=== PATIENT | female | born 1945 | race Two or more races ===

== ENCOUNTER 2021-06-01 19:08 | Inpatient (IN) | payer BC, MEDICARE, OTHER ==
[~2021-06-01] VITALS: Ht 172.7 cm; Wt 112.5 kg
[~2021-06-01 19:08] MED LIST: DILT180C66 PO; DONE10TA11 PO; GABA100C PO; GLIP10TA10 PO; METF-416 PO; SITA100T11 PO
[2021-06-01 21:43] LABS: BASOPHILS % 0.9 % (0.0-2.0); EOSINOPHILS % 3.2 % (0.0-5.0); HEMATOCRIT. 33.7 % (36.0-48.0); HEMOGLOBIN. 11.1 g/dL (12.0-16.0); LYMPHOCYTES % 13.9 % (20.0-50.0); MEAN CORPUSCULAR HEMOGLOBIN 30.1 pg (28.0-32.0); MEAN CORPUSCULAR VOLUME 91.4 fL (81.0-99.0); MEAN PLATELET VOLUME 8.5 fl (7.4-10.4); MONOCYTES % 7.9 % (2.0-8.0); NEUTROPHILS % 74.1 % (40.0-76.0); PLATELET 278 x1000/uL (130-400); RED BLOOD CELL COUNT 3.69 mill/uL (4.2-5.4); RED CELL DISTRIBUTION WIDTH 14.2 % (11.6-14.6)
[2021-06-01 21:46] LABS: CLARITY URINE CLEAR (CLEAR); COLOR URINE YELLOW (YELLOW); KETONES URINE NEGATIVE (NEGATIVE); LEUKOCYTE ESTERASE URINE NEGATIVE (NEGATIVE); NITRITE URINE NEGATIVE (NEGATIVE); OCCULT BLOOD URINE NEGATIVE (NEGATIVE); PROTEIN URINE NEGATIVE (NEGATIVE); SPECIFIC GRAVITY URINE 1.013 (1.005-1.030); UROBILINOGEN URINE 0.2 E.U./dL (0.2-1.0)
[2021-06-01 21:47] LABS: CHLORIDE 108 mEq/L (98-107)
[2021-06-02] MEDS ORDERED: MAGNESIUM/ALUMINUM HYDROXIDE/SIMETHICONE 30ML UDC PO PRN (09:45)
[2021-06-02] MEDS ORDERED: DIPHENHYDRAMINE 50MG/ML VIAL IV PRN (09:45)
[2021-06-02] MEDS ORDERED: DOCUSATE SODIUM 100MG CAPSULE PO PRN (09:45)
[2021-06-02] MEDS ORDERED: LORAZEPAM 2MG/ML CPJ IV PRN (09:45)
[2021-06-02] MEDS ORDERED: IPRATROPIUM/ALBUTEROL 0.5-3(2.5)MG/3ML NEB HHN PRN (09:45)
[2021-06-02] MEDS ORDERED: DEXTROSE 50% WATER 50ML SYRINGE IV PRN (09:45)
[2021-06-02] MEDS ORDERED: HYDROCODONE/ACETAMINOPHEN 5/325MG TABLET PO PRN (09:45)
[2021-06-02] MEDS ORDERED: HYDRALAZINE 20MG/ML VIAL IV PRN (09:45)
[2021-06-02] MEDS ORDERED: ONDANSETRON HCL 4MG/2ML INJ IV PRN (09:45)
[2021-06-02] MEDS ORDERED: ENOXAPARIN 40MG/0.4ML SYR SUBCUT SCH (09:45)
[2021-06-02] MEDS ORDERED: ACETAMINOPHEN 325MG TABLET PO PRN (09:45)
[2021-06-02] MEDS ORDERED: MORPHINE SULFATE 2 MG/ML CPJ (NOT FOR IM USE) IV PRN (09:45)
[2021-06-02] MEDS ORDERED: GUAIFENESIN 200MG/10ML SUGAR FREE UDC PO PRN (09:45)
[2021-06-02] MEDS: ENOXAPARIN 30MG/0.3ML SYR SUBCUT SCH (11:00)
[2021-06-02] MEDS: BLOOD SUGAR DIAGNOSTIC STRIP TEST SCH ×3 (11:30→20:14)
[2021-06-02] MEDS: SODIUM CHLORIDE 0.9% INJ 3ML FLUSH IVF SCH ×2 (14:00→22:00)
[2021-06-02] MEDS ORDERED: NALOXONE HCL 0.4MG/ML VIAL IV PRN (14:15)
[2021-06-02 16:00] VITALS: BP 156/52
[2021-06-02] MEDS: INSULIN LISPRO 100 UNITS/ML SUBCUT SCH ×2 (17:20→20:14)
[2021-06-02 18:12] VITALS: BP 156/52
[2021-06-02 20:00] VITALS: BP 133/58
[2021-06-03] VITALS: BP 162/45
[2021-06-03] MEDS: CLONIDINE 0.1MG TABLET PO PRN ×3 (00:16→13:32)
[2021-06-03 04:00] VITALS: BP 164/64
[2021-06-03] MEDS: BLOOD SUGAR DIAGNOSTIC STRIP TEST SCH ×4 (06:26→21:23)
[2021-06-03] MEDS: SODIUM CHLORIDE 0.9% INJ 3ML FLUSH IVF SCH ×3 (06:26→21:23)
[2021-06-03 07:28] LABS: CHLORIDE 111 mEq/L (98-107)
[2021-06-03 07:33] LABS: BASOPHILS % 0.9 % (0.0-2.0); EOSINOPHILS % 3.7 % (0.0-5.0); HEMATOCRIT. 32.1 % (36.0-48.0); HEMOGLOBIN. 10.6 g/dL (12.0-16.0); LYMPHOCYTES % 15.2 % (20.0-50.0); MEAN CORPUSCULAR HEMOGLOBIN 29.9 pg (28.0-32.0); MEAN CORPUSCULAR VOLUME 90.6 fL (81.0-99.0); MEAN PLATELET VOLUME 9.4 fl (7.4-10.4); MONOCYTES % 9.3 % (2.0-8.0); NEUTROPHILS % 70.9 % (40.0-76.0); PLATELET 274 x1000/uL (130-400); RED BLOOD CELL COUNT 3.54 mill/uL (4.2-5.4); RED CELL DISTRIBUTION WIDTH 13.6 % (11.6-14.6)
[2021-06-03] MEDS: INSULIN LISPRO 100 UNITS/ML SUBCUT SCH ×4 (09:08→21:21)
[2021-06-03] MEDS: ENOXAPARIN 30MG/0.3ML SYR SUBCUT SCH ×2 (10:24→21:23)
[2021-06-03 12:00] VITALS: BP 165/56
[2021-06-03 16:00] VITALS: BP 153/48
[2021-06-03 20:00] VITALS: BP 141/54
[2021-06-04] VITALS: BP 121/58
[2021-06-04 05:00] VITALS: BP 172/69
[2021-06-04] MEDS: CLONIDINE 0.1MG TABLET PO PRN ×2 (05:20→13:12)
[2021-06-04] MEDS: SODIUM CHLORIDE 0.9% INJ 3ML FLUSH IVF SCH ×3 (06:15→22:34)
[2021-06-04] MEDS: BLOOD SUGAR DIAGNOSTIC STRIP TEST SCH ×4 (06:15→21:00)
[2021-06-04 08:00] VITALS: BP 175/52
[2021-06-04 08:05] LABS: BASOPHILS % 0.9 % (0.0-2.0); HEMATOCRIT. 30.1 % (36.0-48.0); HEMOGLOBIN. 10.2 g/dL (12.0-16.0); LYMPHOCYTES % 17.8 % (20.0-50.0); MEAN CORPUSCULAR HEMOGLOBIN 30.5 pg (28.0-32.0); MEAN CORPUSCULAR VOLUME 89.8 fL (81.0-99.0); MEAN PLATELET VOLUME 8.8 fl (7.4-10.4); MONOCYTES % 8.4 % (2.0-8.0); NEUTROPHILS % 68.9 % (40.0-76.0); PLATELET 243 x1000/uL (130-400); RED BLOOD CELL COUNT 3.35 mill/uL (4.2-5.4); RED CELL DISTRIBUTION WIDTH 13.7 % (11.6-14.6)
[2021-06-04] MEDS: ENOXAPARIN 30MG/0.3ML SYR SUBCUT SCH ×2 (08:36→22:29)
[2021-06-04] MEDS: DILTIAZEM HCL 180MG CAPSULE CD 24HR PO SCH (08:36)
[2021-06-04] MEDS: INSULIN LISPRO 100 UNITS/ML SUBCUT SCH ×4 (08:43→22:31)
[2021-06-04] MEDS ORDERED: HYDRALAZINE 10 MG in SODIUM CHLORIDE 0.9% 49.5 ML IV PRN (08:45)
[2021-06-04] MEDS: AMLODIPINE 10MG TABLET PO SCH (08:46)
[2021-06-04 12:00] VITALS: BP 170/50
[2021-06-04 20:00] VITALS: BP 143/62
[2021-06-05] VITALS: BP 140/45
[2021-06-05 04:00] VITALS: BP 141/48
[2021-06-05] MEDS: SODIUM CHLORIDE 0.9% INJ 3ML FLUSH IVF SCH ×3 (06:22→22:41)
[2021-06-05 08:00] VITALS: BP 141/58
[2021-06-05 08:22] LABS: EOSINOPHILS % 4.7 % (0.0-5.0); HEMOGLOBIN. 11.2 g/dL (12.0-16.0); MEAN CORPUSCULAR HEMOGLOBIN 29.2 pg (28.0-32.0); MEAN CORPUSCULAR VOLUME 90.8 fL (81.0-99.0); MEAN PLATELET VOLUME 8.7 fl (7.4-10.4); MONOCYTES % 8.3 % (2.0-8.0); PLATELET 269 x1000/uL (130-400); RED BLOOD CELL COUNT 3.85 mill/uL (4.2-5.4); RED CELL DISTRIBUTION WIDTH 13.5 % (11.6-14.6)
[2021-06-05] MEDS: ENOXAPARIN 30MG/0.3ML SYR SUBCUT SCH ×2 (09:22→22:34)
[2021-06-05] MEDS: DILTIAZEM HCL 180MG CAPSULE CD 24HR PO SCH (09:22)
[2021-06-05] MEDS: AMLODIPINE 10MG TABLET PO SCH (09:22)
[2021-06-05] MEDS: INSULIN LISPRO 100 UNITS/ML SUBCUT SCH ×4 (09:30→22:36)
[2021-06-05 12:00] VITALS: BP 159/69
[2021-06-05] MEDS: BLOOD SUGAR DIAGNOSTIC STRIP TEST SCH ×3 (13:05→21:00)
[2021-06-05 16:00] VITALS: BP 150/64
[2021-06-05 20:00] VITALS: BP 152/52
[2021-06-06] VITALS: BP 156/52
[2021-06-06 00:25] VITALS: BP 130/74
[2021-06-06 04:00] VITALS: BP 153/52
[2021-06-06 08:00] VITALS: BP 170/59
[2021-06-06] MEDS: DILTIAZEM HCL 180MG CAPSULE CD 24HR PO SCH ×2 (08:29→08:53)
[2021-06-06] MEDS: AMLODIPINE 10MG TABLET PO SCH (08:29)
[2021-06-06] MEDS: ENOXAPARIN 30MG/0.3ML SYR SUBCUT SCH (08:46)
[2021-06-06] MEDS: INSULIN LISPRO 100 UNITS/ML SUBCUT SCH ×2 (08:47→13:13)
[2021-06-06 12:00] VITALS: BP 184/63
[2021-06-06] MEDS: BLOOD SUGAR DIAGNOSTIC STRIP TEST SCH ×2 (12:20→12:31)
[2021-06-06 13:25] VITALS: BP 184/63
[2021-06-08 13:06] LABS: OVA & PARASITE EXAM Final report (.)
== END 2021-06-06 15:57 | DRG 551 ==
LOC: ER 19:08 → MICUSO 06-02 01:53 → 6EST 06-02 16:01
PROVIDERS: ADMIT Internal Medicine; ATTEND Internal Medicine
DX: M48.07 Spinal stenosis, lumbosacral region (principal); N17.0 Acute kidney failure with tubular necrosis; M47.12 Other spondylosis with myelopathy, cervical region; M51.24 Other intervertebral disc displacement, thoracic region; E11.9 Type 2 diabetes mellitus without complications; D64.9 Anemia, unspecified; M48.02 Spinal stenosis, cervical region; E66.9 Obesity, unspecified; R26.9 Unspecified abnormalities of gait and mobility; I11.9 Hypertensive heart disease without heart failure; Z20.822 Contact with and (suspected) exposure to COVID-19; Z79.84 Long term (current) use of oral hypoglycemic drugs; Z68.37 Body mass index [BMI] 37.0-37.9, adult; Z79.899 Other long term (current) drug therapy
CPT/HCPCS: 36415; 71045; 72141; 72146; 72148; 80048; 80053; 81003; 82962; 83605; 84443; 84484; 85025; 87015; 87045; 87177; 87209; 87426; 87427; 87449; 87493; 93005; 93970; 97116; 97162; 99285; J1650; J1815; J2405